=== PATIENT | male | born 1955 | race Caucasian/White ===

== ENCOUNTER 2018-07-23 16:16 | Emergency (ER) | payer OTHER, SELFPAY ==
[2018-07-23 16:18] VITALS: BP 169/89; PULSE 52; RESP 16; TEMP 36.3; O2SAT 99; BMI 33.1
--- NOTE | 2018-07-23 16:38 | ED.VISSUMM ---
- ER Visit Summary Date of Service: 07/23/18 Chief Complaint: Right leg bruising History of Present Illness: The patient is a 63 M who noted a red area to the right lower leg this morning. He did scratch his skin when he was taking his socks off. He has a family history of necrotizing fasciitis as well as MRSA who went to have the wound checked. He states he fell and injured his leg approximately a month ago, but had not had any trouble with it. Patient has a history of hypertension and high cholesterol. Physical Examination: Blood pressure is 169/89, otherwise unremarkable. Patient sitting at bedside chair no acute distress. Heart is regular rate and rhythm. Lung sounds are clear. Right lower extremity examination was a small skin tear on the right lower lateral wolff. This is surrounded by an area of erythema which appears to be distended blood vessels. It is not consistent with a varicose vein. He does have strong distal pulses. There is normal range of motion. Posterior calf is nontender with no palpable cords. Test Results: [] Emergency Department Course and Treatment: Patient presents on a Tuesday afternoon I do not have ultrasound available. He will be written for an outpatient venous ultrasound to be performed tomorrow. My clinical suspicion for a large clot above the knee is low so therefore he will not be treated with anticoagulants at this time. Wound is cleansed and dressed. At this time there is no sign of infection I do not feel antibiotics are needed. This was discussed with him as well. Treatment Plan: [] Disposition: Discharge Impression: Right leg wound This note was generated with [employer] dictation software. It may contain incorrect words, spelling, and punctuation that were not noted in review of the chart prior to signing ED Disposition - Plan for ED Patient: Referrals: [facility] ,Out of [Primary Care Provider] -
--- NOTE | 2018-07-23 16:40 | ED.DEP ---
ED Disposition - Plan for ED Patient: Disposition: Home or Assisted Living Instructions: ED Wound Care, ED Contusion Lower Ext Referrals: [facility],Out of [Primary Care Provider] -
== END 2018-07-23 16:47 | disposition home or self-care (01) ==
PROVIDERS: Emergency Provider Emergency Medicine; Family Provider Family Medicine; PCP Family Medicine
DX: S81.811A Laceration without foreign body, right lower leg, initial encounter (principal); S80.11XA Contusion of right lower leg, initial encounter; W19.XXXA Unspecified fall, initial encounter; Y93.9 Activity, unspecified; Y92.9 Unspecified place or not applicable; I10 Essential (primary) hypertension; E78.00 Pure hypercholesterolemia, unspecified
CPT/HCPCS: 99282

== ENCOUNTER → 2018-07-24 10:58 | Outpatient (CLI) | payer OTHER, SELFPAY ==
[2018-07-23 16:18] VITALS: BMI 33.1
--- NOTE | 2018-07-24 11:03 | VDLE_ITS ---
Reason For Study: RLE Swelling RIGHT GSV is normal. CFV is compressible, spontaneous, phasic, competent and demonstrates normal augmentation. FV is compressible, spontaneous, phasic, competent and demonstrates normal augmentation. POP V is compressible, spontaneous, phasic, competent and demonstrates normal augmentation. T/P Trunk is compressible. PTV is compressible. RT PerV is compressible. Procedure Exam performed in department. A preliminary report was called and/or faxed to Dr. Maldonado. Interpretation Summary Deep veins of the right lower extremity are patent and compressible segmentally. There is no evidence of right lower extremity deep vein thrombosis. Valvular competence appears intact within the proximal deep venous system on the right . The right greater saphenous vein appears patent and compressible segmentally. Ordering Physician: Ailyn Zavala Referring Physician: Victor M Maldonado Performed By: Zaina Campos, MARY JO, RVT
== END ==
PROVIDERS: Family Provider Family Medicine; PCP Family Medicine; Referring Provider Emergency Medicine; Visit Provider Emergency Medicine
DX: M79.89 Other specified soft tissue disorders (principal)
CPT/HCPCS: 93971

== ENCOUNTER → 2018-12-29 | Outpatient (CLI) | payer OTHER, SELFPAY ==
[2018-10-18 12:04] VITALS: BMI 34.6
--- NOTE | 2018-12-29 11:04 | RAD_ITS ---
STUDY: X-RAY - LEFT KNEE REASON FOR EXAM: Male, 63 years old. Pain, stiffness TECHNIQUE: 4 view(s) of the knee. COMPARISON: None. FINDINGS: Normal visualized distal femur. Normal visualized proximal tibia and fibula. Normal proximal tibiofibular articulation. There is severe degenerative arthrosis of the medial femorotibial compartment with severe joint space narrowing. There is mild degenerative arthrosis of the lateral femorotibial compartment. There is mild degenerative arthrosis of the patellofemoral articulation. The soft tissue structures are unremarkable. RAD/Knee 4 or More Views IMPRESSION: Degenerative arthrosis. Electronically Signed: Tesfaye Noble MD at 11:29 EDT , Service support ,
== END | disposition home or self-care (01) ==
LOC: RAD 10:56
PROVIDERS: Family Provider Family Medicine; PCP Family Medicine; Referring Provider Family Medicine; Visit Provider Family Medicine
DX: M25.562 Pain in left knee (principal)
CPT/HCPCS: 73564